=== PATIENT | female | born 1995 | race American Indian/Alaskan Native ===

== ENCOUNTER 2016-10-31 12:00 | Emergency (ER) | payer SELFPAY ==
--- NOTE | 2016-10-31 12:23 | Emergency Department Report ---
Chief Complaint: Vaginal Bleeding Stated Complaint: POSS MISCARRIAGE/RASH Time Seen by Provider: 10/31/16 12:21 - HPI History of Present Illness: PT states she has a hx of irregular periods. PT states she has had unusually heavy cycle and she is afraid she is having a miscarriage - ROS Review of Systems: - n/v + vaginal bleeding - Exam Physical Exam: pt looks well, non toxic. abd soft and non tender MSE screening note: Focused history and physical exam performed. Due to findings the following was ordered: labs ED Disposition for MSE Condition: Stable
[2016-10-31 13:16] LABS: Basophils % (Auto) 0.6 % (0.0-1.8); Eosinophils % (Auto) 0.9 % (0.0-4.3); Hematocrit 40.4 % (30.3-42.9); Hemoglobin 13.4 gm/dl (10.1-14.3); Mean Corpuscular HGB Conc 33 % (30-34); Mean Corpuscular Hemoglobin 28 pg (28-32); Mean Corpuscular Volume 84 fl (79-97); Platelet Count 253 K/mm3 (140-440); Red Blood Count 4.79 M/mm3 (3.65-5.03); Red Cell Distribution Width 12.2 % (13.2-15.2); White Blood Count 7.8 K/mm3 (4.5-11.0)
[2016-10-31 13:30] LABS: Anion Gap 18 mmol/L; Blood Urea Nitrogen 4 mg/dL (7-17); Calcium 9.3 mg/dL (8.4-10.2); Carbon Dioxide 26 mmol/L (22-30); Chloride 98.7 mmol/L (98-107); Glucose 71 mg/dL (65-100); Potassium 3.6 mmol/L (3.6-5.0); Sodium 139 mmol/L (137-145)
[2016-10-31 14:06] LABS: Bacteria,Urine 1+ /HPF (Negative); Bilirubin,Urine NEG (Negative); Blood,Urine LG (Negative); Ketones,Urine NEG (Negative); Leukocyte Esterase,Urine NEG (Negative); Nitrite,Urine NEG (Negative); Protein,Urine <15 mg/dL mg/dL (Negative); Urobilinogen,Urine < 2.0 mg/dL (<2.0)
[2016-10-31 17:00] VITALS: BP 124/78
--- NOTE | 2016-10-31 17:21 | Emergency Department Report ---
Entered by RAYA BARBOZA, acting as scribe for CECILE WADE PA. ED Female HPI - General Chief complaint: Vaginal Bleeding Stated complaint: POSS MISCARRIAGE/RASH Time Seen by Provider: 10/31/16 12:21 Source: patient Mode of arrival: Ambulatory Limitations: No Limitations - History of Present Illness Initial comments: 21 y/o female with no significant PMHx presents to the ED c/o heavy vaginal bleeding that began 2 days ago. Denies dysuria, urgency, frequency, abdominal pain, nausea, vomiting, fever, and chills. Reports she is having an unusual heavy menstrual period and believes she is having a miscarriage. Patient notes Hx of irregular periods. Reports she usually gets her period for 4-5 days every 2 months, but she states she's been having heavy menstrual periods every month for 8 months straight. Patient notes she had a heavy menstrual period in 1 month ago, which she states passing occasional clots. Notes her menstrual period stopped on 10/21/2016, but her heavy period began again on 10/29/2016. Patient states she was on Depo for 5 years, which her last Depo shot was 2 years ago. Denies having insurance and having an SALES COUNSELOR to follow-up with. Notes the last time she was seen by an OB, she was treated for bacterial vaginosis. Denies taking any medication regularly at home. Patient also c/o of a rash generalized to labia that began 2 weeks ago. Denies any pain and itching. NKDA. WOODS Complaint: vaginal bleeding Onset/Timin -: days(s) Radiation: non-radiating Severity: moderate Severity scale (0 -10): 5 Consistency: constant Improves with: none Worsens with: menstrual period Are you Now?: No Last Menstrual Period: 10/30/16 EDC: 08/06/17 Associated Symptoms: denies other symptoms, vaginal bleeding, rash (rash generalized to labia). denies: vaginal discharge, abdominal pain, nausea/ vomiting, fever/chills, headaches, loss of appetite, dysuria, hematuria, seizure , shortness of breath, syncope, weakness - Related Data Previous Rx's Medication Instructions Recorded Last Taken Type Ibuprofen [Motrin] 800 mg PO Q8HR PRN #30 tablet 10/31/16 Unknown Rx Norgestimate-Ethinyl Estradiol 1 each PO DAILY #28 tablet 10/31/16 Unknown Rx [Sprintec 28 Day Tablet] Allergies Allergy/AdvReac Type Severity Reaction Status Date / Time No Known Allergies Allergy Unverified 10/31/16 12:19 ED Review of Systems Comment: All other systems reviewed and negative Constitutional: denies: chills, diaphoresis, fever, weakness Eyes: denies: eye pain, eye discharge, vision change ENT: denies: ear pain, throat pain Respiratory: denies: cough, orthopnea, shortness of breath, SOB with exertion, SOB at rest, stridor, wheezing Cardiovascular: denies: chest pain, palpitations, dyspnea on exertion, orthopnea , edema, syncope, paroxysmal nocturnal dyspnea Endocrine: no symptoms reported Gastrointestinal: denies: abdominal pain, nausea, vomiting, diarrhea Genitourinary: other (vaginal bleeding). denies: urgency, dysuria, frequency, hematuria, discharge, abnormal menses, dyspareunia Musculoskeletal: denies: back pain, joint swelling, arthralgia Skin: rash (warts generalized to labia). denies: lesions Neurological: denies: headache, weakness, numbness, paresthesias ED Past Medical Hx - Past Medical History Previous Medical History?: No - Surgical History Past Surgical History?: No - Social History Smoking Status: Current Every Day Smoker Substance Use Type: Alcohol - Medications Home Medications: Home Medications Medication Instructions Recorded Confirmed Last Taken Type Ibuprofen [Motrin] 800 mg PO Q8HR PRN #30 tablet 10/31/16 Unknown Rx Norgestimate-Ethinyl Estradiol 1 each PO DAILY #28 tablet 10/31/16 Unknown Rx [Sprintec 28 Day Tablet] ED Physical Exam - General Limitations: No Limitations General appearance: alert, in no apparent distress - Head Head exam: Present: atraumatic, normocephalic - Eye Eye exam: Present: normal appearance, PERRL, EOMI Pupils: Present: normal accommodation - ENT ENT exam: Present: normal exam, mucous membranes moist, normal external ear exam - Neck Neck exam: Present: normal inspection, full ROM. Absent: tenderness, meningismus, lymphadenopathy - Respiratory Respiratory exam: Present: normal lung sounds bilaterally. Absent: respiratory distress, wheezes, rales, rhonchi, stridor, chest wall tenderness, accessory muscle use, decreased breath sounds - Cardiovascular Cardiovascular Exam: Present: regular rate, normal rhythm, normal heart sounds. Absent: systolic murmur, diastolic murmur, rubs, gallop - GI/Abdominal GI/Abdominal exam: Present: soft, normal bowel sounds. Absent: distended, tenderness, guarding, rebound, rigid - External exam: Present: other (warts generalized around the labia). Absent: normal external exam, erythema, swelling, lesions, lacerations, ecchymosis, bleeding Speculum exam: Present: vaginal bleeding (dark reddish in vaginal vault), other (mild bleeding in cervix). Absent: normal speculum exam, erythema, vaginal discharge, cervical discharge, foreign body, tissue, laceration Bi-manual exam: Present: normal bi-manual exam. Absent: cervical motion tendernes, adnexal tenderness, adnexal mass, uterine enlargement, uterine tenderness - Expanded Exam Expanded Female exam: Present: other (warts generalized around the labia). Absent: vaginal laceration, tissue present in vagina, herpetic lesions, vulvar erythema , vulvar tenderness, foreign body Amniotic fluid: Present: none Speculum exam: Present: cervical OS open (slightly), vaginal bleeding (dark reddish), other (mild bleeding in cervix). Absent: vaginal discharge - Extremities Exam Extremities exam: Present: normal inspection, full ROM - Back Exam Back exam: Present: normal inspection, full ROM. Absent: tenderness, CVA tenderness (R), CVA tenderness (L), muscle spasm, paraspinal tenderness, vertebral tenderness, rash noted - Neurological Exam Neurological exam: Present: alert, oriented X3, normal gait - Psychiatric Psychiatric exam: Present: normal affect, normal mood - Skin Skin exam: Present: warm, dry, intact. Absent: rash ED Course Vital Signs 10/31/16 10/31/16 10/31/16 12:19 14:58 16:59 Temperature 98.6 F Pulse Rate 77 80 Respiratory 18 18 18 Rate Blood Pressure 113/74 Blood Pressure 124/78 [Right] O2 Sat by Pulse 100 98 98 Oximetry ED Medical Decision Making - Lab Data Result diagrams: 10/31/16 13:01 10/31/16 13:01 - Medical Decision Making 21 [id number] presents with abnormal uterine bleed ED course: Patient received an UA, HCG qualitative, CBC, and BMP. Urine test negative, UA negative, CBC H&H within normal limits Discussed this findings with patient. Vital signs stable patient is in no acute or respiratory distress. Discussed treatment in ED with patient Discussed with patient take prescribed control at the same time daily. Discussed with patient to not engage in sexual intercourse until she is treated by an OB referred. Discussed with patient to follow up with SALES COUNSELOR as referred, and to return to the ED if symptoms return or worsen. Patient states understanding and will follow instructions. Pt verbally states understanding and will comply to follow up. ED Disposition Clinical Impression: Abnormal uterine bleeding, Menometrorrhagia, Molluscum contagiosum Disposition: TO HOME OR SELFCARE Is pt being admited?: No Does the pt Need Aspirin: No Condition: Stable Instructions: Menorrhagia (ED), Molluscum Contagiosum (ED) Additional Instructions: Follow-up with CRISIS COUNSELOR as referred. Take medication as prescribed. If bleeding worsens or any new symptoms such as dizziness return to ED Prescriptions: Ibuprofen [Motrin] 800 mg PO Q8HR PRN #30 tablet PRN Reason: Pain Norgestimate-Ethinyl Estradiol [Sprintec 28 Day Tablet] 1 each PO DAILY #28 tablet Referrals: PRIMARY CARE, [Primary Care Provider] - 3-5 Days VANI HOFFMAN MD [Referring] - 3-5 Days MILTON WHITFIELD MD [Staff Physician] - 3-5 Days KATHY WHITFIELD MD [Referring] - 3-5 Days Forms: Work/School Release Form(ED) Time of Disposition: 15:10 This documentation as recorded by the TAMRA simmons JASMINE,accurately reflects the service I personally performed and the decisions made by MAURO amaral OYINLOLA A, PA.
== END 2016-10-31 16:58 | disposition home or self-care (01) ==
LOC: ED 12:00
DX: N93.9 Abnormal uterine and vaginal bleeding, unspecified (principal); N92.1 Excessive and frequent menstruation with irregular cycle; B08.1 Molluscum contagiosum; F17.200 Nicotine dependence, unspecified, uncomplicated
CPT/HCPCS: 36415; 80048; 81001; 84703; 85025; 99283